=== PATIENT | female | born 1960 | race Caucasian/White ===

== ENCOUNTER 2021-09-22 16:57 | Emergency (ER) | payer OTHER ==
[2021-09-22] MEDS ORDERED: SODIUM CHLORIDE 0.9% 500 ML 500 ML IV STA (18:20)
[2021-09-22 18:40] LABS: Appearance,Urine Clear (Clear); Basophils # (A) 0.1 k/uL (0-0.2); Basophils % (A) 1 %; Bilirubin,Urine Negative (Negative); Blood,Urine Negative (Negative); Color,Urine Colorless; Eosinophils # (A) 0.2 k/uL (0-0.7); Eosinophils % (A) 2 %; Glucose,Urine (UA) Negative (Negative); HCT 41.3 % (34.0-46.0); Ketones,Urine Negative (Negative); Leukocyte Esterase,Urine Negative (Negative); Lymphocytes # (A) 2.2 k/uL (1.0-4.8); Lymphocytes % (A) 26 %; MCH 30.1 pg (25.0-35.0); MCV 88.7 fL (80.0-100.0); Mean Platelet Volume 7.2; Monocytes # (A) 0.6 k/uL (0-1.0); Monocytes % (A) 7 %; Neutrophils # (A) 5.4 k/uL (1.3-7.7); Neutrophils % (A) 63 %; Nitrite,Urine Negative (Negative); PH, Urine 6.5 (5.0-8.0); Platelet Count 273 k/uL (150-450); Protein,Urine Negative (Negative); RBC 4.65 m/uL (3.80-5.40); RDW 12.5 % (11.5-15.5); Specific Gravity,Urine 1.003 (1.001-1.035); Urobilinogen,Urine <2.0 mg/dL (<2.0); WBC 8.6 k/uL (3.8-10.6)
[2021-09-22 18:49] LABS: ALT 39 U/L (4-34); AST 31 U/L (14-36); African American GFR (CKD) >90 (>60 ml/min/1.73 sqM); Albumin 4.9 g/dL (3.5-5.0); Alkaline Phosphatase 53 U/L (38-126); Anion Gap 9 mmol/L; Blood Urea Nitrogen 12 mg/dL (7-17); Calcium 10.2 mg/dL (8.4-10.2); Carbon Dioxide 25 mmol/L (22-30); Chloride 104 mmol/L (98-107); Glucose 108 mg/dL (74-99); Magnesium 1.8 mg/dL (1.6-2.3); Non-African American GFR(CKD) >90 (>60 ml/min/1.73 sqM); Potassium 3.8 mmol/L (3.5-5.1); Sodium 138 mmol/L (137-145); Total Bilirubin 0.7 mg/dL (0.2-1.3); Total Protein 7.6 g/dL (6.3-8.2)
[2021-09-22 18:54] LABS: Prothrombin Time 10.4 sec (9.0-12.0)
--- NOTE | 2021-09-22 19:28 | CT ---
EXAMINATION TYPE: CT brain wo con CT DLP: 1104.4 mGycm, Automated exposure control for dose reduction was used. DATE OF EXAM: 09/22/2021 7:09 PM COMPARISON: None. CLINICAL INDICATION:Female, 61 years old with history of weakness, headaches and memory loss TECHNIQUE: Brain: Multiple axial CT images of the brain were obtained without IV contrast. FINDINGS: Brain: Extra-axial spaces: No abnormal extra-axial fluid collections. Ventricular system: Within normal limits Cerebral parenchyma: No acute intraparenchymal hemorrhage or mass effect. The [place] junction is well differentiated. Cerebellum: Unremarkable. Mass effect: No evidence of midline shift. Intracranial vasculature: Atherosclerotic calcifications of the intracranial vessels. Soft tissues: Normal. Calvarium/osseous structures: No depressed skull fracture. Paranasal sinuses and mastoid air cells: Clear Visualized orbits: Orbital contents are intact. IMPRESSION: No acute intracranial process.
--- NOTE | 2021-09-22 20:02 | ED ---
General Adult HPI - General Chief complaint: Recheck/Abnormal Lab/Rx Stated complaint: balance problems Time Seen by Provider: 09/22/21 18:11 Source: patient, RN notes reviewed, old records reviewed Mode of arrival: ambulatory Limitations: no limitations - History of Present Illness Initial comments: 61 yo female presenting for evaluation of elevated blood pressure. Patient has been following her blood pressure over the past one week she has had some increased numbers. Over this time she has been somewhat unsteady on her feet. She was started on amlodipine by her primary care physician after trials of several other medications that did not seem to improve her pressure over the past several months. She denies central chest pain. She denies focal numbness or weakness. She has a slight headache over the past one week. She has an MRI scheduled for Saturday which is 2 days from now for the dizziness that she has been experiencing over the past one week. She states that it currently is quite insignificant. - Related Data Allergies Allergy/AdvReac Type Severity Reaction Status Date / Time cefuroxime [From Ceftin] Allergy Unknown Verified 09/22/21 20:00 Review of Systems ROS Statement: Those systems with pertinent positive or pertinent negative responses have been documented in the HPI. ROS Other: All systems not noted in ROS Statement are negative. Past Medical History Past Medical History: Hypertension History of Any Multi-Drug Resistant Organisms: None Reported Past Surgical History: Appendectomy, Tonsillectomy Additional Past Surgical History / Comment(s): ovarian cyst removal Past Psychological History: Anxiety Smoking Status: Current every day smoker Past Alcohol Use History: None Reported Past Drug Use History: None Reported General Exam Limitations: no limitations General appearance: alert, in no apparent distress Head exam: Present: atraumatic, normocephalic Eye exam: Present: normal appearance, PERRL ENT exam: Present: mucous membranes dry Neck exam: Present: normal inspection. Absent: tenderness, meningismus Respiratory exam: Present: normal lung sounds bilaterally. Absent: respiratory distress, wheezes Cardiovascular Exam: Present: regular rate, normal rhythm GI/Abdominal exam: Present: soft. Absent: distended, tenderness Extremities exam: Present: normal inspection, normal capillary refill. Absent: pedal edema Neurological exam: Present: alert, oriented X3, CN II-XII intact, normal gait. Absent: motor sensory deficit Psychiatric exam: Present: normal affect, normal mood Skin exam: Present: warm, dry, intact. Absent: cyanosis, diaphoretic Course Vital Signs 09/22/21 09/22/21 09/22/21 17:09 18:33 19:28 Temperature 99.7 F H Pulse Rate 102 H 96 92 Respiratory 20 18 18 Rate Blood Pressure 192/96 198/104 203/100 O2 Sat by Pulse 96 98 96 Oximetry EKG Findings - EKG Comments: EKG Findings:: EKG: Sinus rhythm rate of 97, DC interval 186, QRS duration 103, QTC 373, no ST segment elevation. Medical Decision Making - Medical Decision Making 61-year-old female presenting with elevated blood pressure over the past one we ek. Recently started on amlodipine 2.5 mg. Patient had experienced some gait instability over the past one week and is scheduled for MRI on Saturday. She has no chest pain. She has no ataxia on exam. She has a nonfocal neurologic exam. She is hypertensive in the emergency department and admits to some anxiety associated with being here. I did perform workup including EKG, laboratory testing: CBC, CMP, urinalysis, troponin. Lab testing is negative. Head CT is negative for intracranial hemorrhage or mass effect, no acute findings. Sugar does remain elevated in the emergency department. We did discuss admission for further evaluation and treatment of her elevated blood pressure. Patient declines. She prefers discharge. I did instruct her to increase her amlodipine dose to 5 mg daily. She will monitor her blood pressure closely at home. She is given very strict return parameters for any headache, chest pain, focal numbness or weakness to present back to the emergency department. Her is agreeable with this plan. She has an MRI scheduled for Saturday. She has good outpatient PCP follow-up. - Lab Data Result diagrams: 09/22/21 18:31 09/22/21 18:31 Lab Results 09/22/21 09/22/21 09/22/21 Range/Units 18:31 18:31 18:31 WBC 8.6 (3.8-10.6) k/uL RBC 4.65 (3.80-5.40) m/uL Hgb 14.0 (11.4-16.0) gm/dL Hct 41.3 (34.0-46.0) % MCV 88.7 (80.0-100.0) fL MCH 30.1 (25.0-35.0) pg MCHC 34.0 (31.0-37.0) g/dL RDW 12.5 (11.5-15.5) % Plt Count 273 (150-450) k/uL MPV 7.2 Neutrophils % 63 % Lymphocytes % 26 % Monocytes % 7 % Eosinophils % 2 % Basophils % 1 % Neutrophils # 5.4 (1.3-7.7) k/uL Lymphocytes # 2.2 (1.0-4.8) k/uL Monocytes # 0.6 (0-1.0) k/uL Eosinophils # 0.2 (0-0.7) k/uL Basophils # 0.1 (0-0.2) k/uL PT 10.4 (9.0-12.0) sec INR 1.0 (<1.2) APTT 26.0 (22.0-30.0) sec Sodium (137-145) mmol/L Potassium (3.5-5.1) mmol/L Chloride (98-107) mmol/L Carbon Dioxide (22-30) mmol/L Anion Gap mmol/L BUN (7-17) mg/dL Creatinine (0.52-1.04) mg/dL Est GFR (CKD-EPI)AfAm (>60 ml/min/1.73 sqM) Est GFR (CKD-EPI)NonAf (>60 ml/min/1.73 sqM) Glucose (74-99) mg/dL Calcium (8.4-10.2) mg/dL Magnesium (1.6-2.3) mg/dL Total Bilirubin (0.2-1.3) mg/dL AST (14-36) U/L ALT (4-34) U/L Alkaline Phosphatase (38-126) U/L Troponin I (0.000-0.034) ng/mL Total Protein (6.3-8.2) g/dL Albumin (3.5-5.0) g/dL Urine Color Colorless Urine Appearance Clear (Clear) Urine pH 6.5 (5.0-8.0) Ur Specific [place] 1.003 (1.001-1.035) Urine Protein Negative (Negative) Urine Glucose (UA) Negative (Negative) Urine Ketones Negative (Negative) Urine Blood Negative (Negative) Urine Nitrite Negative (Negative) Urine Bilirubin Negative (Negative) Urine Urobilinogen <2.0 (<2.0) mg/dL Ur Leukocyte Esterase Negative (Negative) 09/22/21 09/22/21 Range/Units 18:31 18:31 WBC (3.8-10.6) k/uL RBC (3.80-5.40) m/uL Hgb (11.4-16.0) gm/dL Hct (34.0-46.0) % MCV (80.0-100.0) fL MCH (25.0-35.0) pg MCHC (31.0-37.0) g/dL RDW (11.5-15.5) % Plt Count (150-450) k/uL MPV Neutrophils % % Lymphocytes % % Monocytes % % Eosinophils % % Basophils % % Neutrophils # (1.3-7.7) k/uL Lymphocytes # (1.0-4.8) k/uL Monocytes # (0-1.0) k/uL Eosinophils # (0-0.7) k/uL Basophils # (0-0.2) k/uL PT (9.0-12.0) sec INR (<1.2) APTT (22.0-30.0) sec Sodium 138 (137-145) mmol/L Potassium 3.8 (3.5-5.1) mmol/L Chloride 104 (98-107) mmol/L Carbon Dioxide 25 (22-30) mmol/L Anion Gap 9 mmol/L BUN 12 (7-17) mg/dL Creatinine 0.56 (0.52-1.04) mg/dL Est GFR (CKD-EPI)AfAm >90 (>60 ml/min/1.73 sqM) Est GFR (CKD-EPI)NonAf >90 (>60 ml/min/1.73 sqM) Glucose 108 H (74-99) mg/dL Calcium 10.2 (8.4-10.2) mg/dL Magnesium 1.8 (1.6-2.3) mg/dL Total Bilirubin 0.7 (0.2-1.3) mg/dL AST 31 (14-36) U/L ALT 39 H (4-34) U/L Alkaline Phosphatase 53 (38-126) U/L Troponin I <0.012 (0.000-0.034) ng/mL Total Protein 7.6 (6.3-8.2) g/dL Albumin 4.9 (3.5-5.0) g/dL Urine Color Urine Appearance (Clear) Urine pH (5.0-8.0) Ur Specific [place] (1.001-1.035) Urine Protein (Negative) Urine Glucose (UA) (Negative) Urine Ketones (Negative) Urine Blood (Negative) Urine Nitrite (Negative) Urine Bilirubin (Negative) Urine Urobilinogen (<2.0) mg/dL Ur Leukocyte Esterase (Negative) Disposition Clinical Impression: Hypertension Disposition: HOME SELF-CARE Condition: Fair Instructions (If sedation given, give patient instructions): Hypertension (ED) Additional Instructions: Please increase your amlodipine to 5 mg daily. Please return with any worsening or changing symptoms. Please keep track of her blood pressure daily. Please follow closely with her primary care physician. Is patient prescribed a controlled substance at d/c from ED?: No Referrals: Meagan Leo MD [Primary Care Provider] - 1-2 days Time of Disposition: 20:02
[2021-09-22 20:12] VITALS: BP 174/86; PULSE 90; RESP 16; TEMP 98.6
== END 2021-09-22 20:10 | disposition home or self-care (01) ==
LOC: EC 16:57
DX: I10 Essential (primary) hypertension (principal); F41.9 Anxiety disorder, unspecified; F17.200 Nicotine dependence, unspecified, uncomplicated
CPT/HCPCS: 36415; 70450; 80053; 81003; 83735; 84484; 85025; 85610; 85730; 93005; 96360; 99284

== ENCOUNTER → 2022-05-14 | Outpatient (CLI) | payer OTHER ==
[2022-05-14 10:25] LABS: African American GFR (CKD) >90 (>60 ml/min/1.73 sqM); Blood Urea Nitrogen 10 mg/dL (7-17); Non-African American GFR(CKD) >90 (>60 ml/min/1.73 sqM)
--- NOTE | 2022-05-14 14:10 | CT ---
EXAMINATION TYPE: CT angio abd aorta w/Runoff DATE OF EXAM: 05/14/2022 11:45 AM COMPARISON: None HISTORY: embolism and thrombosis CT DLP: 1428.1 mGycm Automated exposure control for dose reduction was used. TECHNIQUE: Performed without and with IV Contrast, patient injected with 125 mL of Isovue 370. . FINDINGS: LUNG BASES: clear. ABDOMEN: There is low attenuation involving the liver compatible hepatic steatosis. Small hiatal hernia. Pancr eas normal. Adrenal glands demonstrate mild thickening on the left may be on the basis of lesion. Vag ue nonobstructing less than 5 mm bilateral renal calculi. AORTA: There is extensive atherosclerotic change of the abdominal aorta with critical stenosis and ne ar complete occlusion at the level L1-L2. There is enhancement just distal to this area on severe to critical stenosis. More moderate atherosclerotic change involving the mid and distal abdominal aorta. There is atherosclerotic plaque at the origin of bilateral dominant renal arteries with small accesso ry bilateral renal arteries suspected. Cannot exclude a significant stenosis. Celiac axis demonstrate s mild atherosclerotic plaque at its origin. SMA demonstrates no significant atherosclerotic plaque. KENNEDY enhances normally. ILIAC ARTERIES: The bilateral common iliac arteries demonstrate less than 50% calcified atherosclerot ic changes. The external iliac arteries demonstrate no significant stenosis. There is mild atheroscle rotic plaque of the bilateral common femoral artery measuring less than 50%. Deep femoral artery is p atent bilaterally. RIGHT LOWER EXTREMITY: The superficial femoral artery to be widely patent throughout its course with minimal atherosclerotic plaque. Popliteal artery is widely patent with no significant disease. Tibial peroneal trunk is patent with no significant disease. The trifurcation vessels are diminutive in size with the peroneal artery seen to level the ankle and the anterior tibial and posterior tibial arteries seen extending into the foot and filling there dors lan pedis and posterior calcaneal branches respectively. No significant stenosis. There is approximately 50-60% stenosis of the left internal iliac arteries bilaterally. LEFT LOWER EXTREMITY: The superficial femoral artery to be widely patent throughout its course with minimal atherosclerotic plaque. Popliteal artery is widely patent with no significant disease. Tibial peroneal trunk is patent with no significant disease. The trifurcation vessels are diminutive in size with the peroneal artery seen to level the ankle and the anterior tibial and posterior tibial arteries seen extending into the foot and filling there dors lan pedis and posterior calcaneal branches respectively. No significant stenosis. There is approximately 50-60% stenosis of the left internal iliac arteries bilaterally. OTHER: Hypertrophic and degenerative change of the spine. Small anterior periumbilical hernia. Bowel gas pat tern nonspecific with changes of diverticulosis of the colon. Calcified granuloma right lower lung ba se. Hepatic granuloma. IMPRESSION: 1. Severe to critical stenosis abdominal aorta the level L1-L2 correlate clinically. 2. Iliac and bilateral lower extremity vasculature demonstrates no significant stenosis. 3. There are accessory bilateral renal arteries with a dominant renal arteries demonstrate significan t atherosclerotic plaque near their origin. 4. Bilateral nonobstructing renal calculi. 5. Hepatic steatosis.
== END | disposition home or self-care (01) ==
LOC: RADCTMAIN 09:29
PROVIDERS: ATTEND Surgery
DX: I70.0 Atherosclerosis of aorta (principal); N20.0 Calculus of kidney; K76.0 Fatty (change of) liver, not elsewhere classified
CPT/HCPCS: 82565; 84520; 75635; 36415; Q9967

== ENCOUNTER → 2022-08-18 | Outpatient (CLI) | payer OTHER ==
[2022-08-18 10:36] LABS: Partial Thromboplastin Time 26.4 sec (22.0-30.0); Prothrombin Time 10.3 sec (9.0-12.0)
[2022-08-18 16:53] LABS: Basophils # (A) 0.07 X 10*3/uL (0.00-0.10); Eosinophils # (A) 0.16 X 10*3/uL (0.04-0.35); Eosinophils % (A) 2.4 %; HCT 41.5 % (37.2-46.3); HGB 13.8 g/dL (12.0-15.0); Immature Grans, Automated 0.4 %; Lymphocytes # (A) 1.93 X 10*3/uL (0.90-5.00); Lymphocytes % (A) 28.9 %; MCH 29.2 pg (27.0-32.0); MCHC 33.3 g/dL (32.0-37.0); MCV 87.9 fL (80.0-97.0); Mean Platelet Volume 10.8 fL (9.5-12.2); Monocytes # (A) 0.59 X 10*3/uL (0.20-1.00); Monocytes % (A) 8.8 %; NRBC Per 100 WBC 0 /100 WBCS (0.0-0.0); Neutrophils # (A) 3.89 X 10*3/uL (1.80-7.70); Neutrophils % (A) 58.5 %; Platelet Count 286 X 10*3/uL (140-440); RBC 4.72 X 10*6/uL (4.10-5.20); RDW 12.2 % (11.5-14.5); WBC 6.67 X 10*3/uL (4.50-10.00)
== END | disposition home or self-care (01) ==
LOC: LABPAT 09:30
PROVIDERS: ATTEND Surgery
DX: Z01.812 Encounter for preprocedural laboratory examination (principal)
CPT/HCPCS: 85025; 85610; 85730